=== PATIENT | male | born 1955 | race Caucasian/White ===

== ENCOUNTER → 2017-06-04 | Outpatient (CLI) | payer OTHER ==
[~2017-06-04] VITALS: Ht 170.2 cm; Wt 97.1 kg
[~2017-06-04] MED LIST: ASPI-556 PO; BETA50CR5 TP; CARV6 PO; CLOP75 PO; EMPA25TA PO; ENAL5 PO; HYDR25TA PO; INSLAN SQ; INSU100C3 SQ; LIDOCAINE HCL 2% 5 ML JELLY TP ONE; LINA5TAB PO; METF500T4 PO; OMEG1CAP12 PO; PRAV40TA4 PO; SODIUM HYPOCHLORITE 0.25% [HALF STRENGTH] 473 ML SOLUTION TP ONE; TRI115C TP
[2017-06-04 11:53] VITALS: BP 112/65
== END | disposition home or self-care (01) ==
LOC: HBOWC 11:11
PROVIDERS: ATTEND Internal Medicine
DX: E11.622 Type 2 diabetes mellitus with other skin ulcer (principal); L97.811 Non-pressure chronic ulcer of other part of right lower leg limited to breakdown of skin; L97.521 Non-pressure chronic ulcer of other part of left foot limited to breakdown of skin; L84 Corns and callosities; E11.69 Type 2 diabetes mellitus with other specified complication; M86.672 Other chronic osteomyelitis, left ankle and foot; I10 Essential (primary) hypertension
CPT/HCPCS: 11042; G0463

== ENCOUNTER → 2017-06-11 | Outpatient (CLI) | payer OTHER ==
[~2017-06-11] MED LIST changes: -BETA50CR5 TP; +CIPR-278 PO; +DOXY100C PO; +GADOBUTROL 1 MMOL/ML 10 ML VIAL IVP ONE; +LIDOCAINE HCL 2% 5 ML JELLY ONE; -LIDOCAINE HCL 2% 5 ML JELLY TP ONE; -SODIUM HYPOCHLORITE 0.25% [HALF STRENGTH] 473 ML SOLUTION TP ONE; -TRI115C TP
[2017-06-11 11:48] VITALS: BP 142/63
== END | disposition home or self-care (01) ==
LOC: HBOWC 10:50
PROVIDERS: ATTEND Internal Medicine
DX: E11.622 Type 2 diabetes mellitus with other skin ulcer (principal); L97.111 Non-pressure chronic ulcer of right thigh limited to breakdown of skin; E11.621 Type 2 diabetes mellitus with foot ulcer; L97.511 Non-pressure chronic ulcer of other part of right foot limited to breakdown of skin; L84 Corns and callosities; I10 Essential (primary) hypertension
CPT/HCPCS: 11042; 73552; 73630; 73720; 73723; A9585

== ENCOUNTER → 2017-06-12 | Outpatient (CLI) | payer OTHER ==
[~2017-06-12] MED LIST changes: -GADOBUTROL 1 MMOL/ML 10 ML VIAL IVP ONE; -LIDOCAINE HCL 2% 5 ML JELLY ONE
== END | disposition home or self-care (01) ==
LOC: RADPV 10:16
PROVIDERS: ATTEND Internal Medicine
DX: I70.203 Unspecified atherosclerosis of native arteries of extremities, bilateral legs (principal); E11.621 Type 2 diabetes mellitus with foot ulcer; L97.819 Non-pressure chronic ulcer of other part of right lower leg with unspecified severity
CPT/HCPCS: 93880; 93925

== ENCOUNTER → 2017-06-18 | Outpatient (CLI) | payer OTHER ==
[2017-06-18 10:28] VITALS: BP 110/54
== END | disposition home or self-care (01) ==
LOC: HBOWC 09:55
PROVIDERS: ATTEND Internal Medicine
DX: E11.622 Type 2 diabetes mellitus with other skin ulcer (principal); L97.111 Non-pressure chronic ulcer of right thigh limited to breakdown of skin; E11.621 Type 2 diabetes mellitus with foot ulcer; L97.511 Non-pressure chronic ulcer of other part of right foot limited to breakdown of skin; L84 Corns and callosities; I10 Essential (primary) hypertension; E11.69 Type 2 diabetes mellitus with other specified complication; M86.8X7 Other osteomyelitis, ankle and foot
CPT/HCPCS: 11042

== ENCOUNTER → 2017-06-25 | Outpatient (CLI) | payer OTHER ==
[~2017-06-25] MED LIST changes: +GENTAMICIN SULFATE 0.1% 15 GM OINTMENT TP ONE; +LIDOCAINE HCL 2% 5 ML JELLY TP ONE
[2017-06-25 09:45] VITALS: BP 147/90
== END | disposition home or self-care (01) ==
LOC: HBOWC 08:54
PROVIDERS: ATTEND Internal Medicine
DX: E11.622 Type 2 diabetes mellitus with other skin ulcer (principal); L97.111 Non-pressure chronic ulcer of right thigh limited to breakdown of skin; E78.5 Hyperlipidemia, unspecified; E11.51 Type 2 diabetes mellitus with diabetic peripheral angiopathy without gangrene; I10 Essential (primary) hypertension; E11.69 Type 2 diabetes mellitus with other specified complication; M86.672 Other chronic osteomyelitis, left ankle and foot
CPT/HCPCS: 11042

== ENCOUNTER → 2017-07-09 | Outpatient (CLI) | payer OTHER ==
[~2017-07-09] MED LIST changes: -GENTAMICIN SULFATE 0.1% 15 GM OINTMENT TP ONE; -LIDOCAINE HCL 2% 5 ML JELLY TP ONE
[2017-07-09 11:33] VITALS: BP 148/66
== END | disposition home or self-care (01) ==
LOC: HBOWC 10:32
PROVIDERS: ATTEND Internal Medicine
DX: E11.622 Type 2 diabetes mellitus with other skin ulcer (principal); L98.491 Non-pressure chronic ulcer of skin of other sites limited to breakdown of skin; S91.301D Unspecified open wound, right foot, subsequent encounter; E11.51 Type 2 diabetes mellitus with diabetic peripheral angiopathy without gangrene; I10 Essential (primary) hypertension; E78.5 Hyperlipidemia, unspecified; E11.69 Type 2 diabetes mellitus with other specified complication; M86.672 Other chronic osteomyelitis, left ankle and foot; E11.22 Type 2 diabetes mellitus with diabetic chronic kidney disease; I12.9 Hypertensive chronic kidney disease with stage 1 through stage 4 chronic kidney disease, or unspecified chronic kidney disease; N18.9 Chronic kidney disease, unspecified; E11.40 Type 2 diabetes mellitus with diabetic neuropathy, unspecified; X58.XXXD Exposure to other specified factors, subsequent encounter
CPT/HCPCS: 97597

== ENCOUNTER → 2017-08-06 | Outpatient (CLI) | payer OTHER ==
[~2017-08-06] MED LIST changes: -METF500T4 PO; +METF500T6 PO
[2017-08-06 09:21] VITALS: BP 153/74
== END | disposition home or self-care (01) ==
LOC: HBOWC 08:48
PROVIDERS: ATTEND Internal Medicine
DX: E11.622 Type 2 diabetes mellitus with other skin ulcer (principal); L97.111 Non-pressure chronic ulcer of right thigh limited to breakdown of skin; E11.22 Type 2 diabetes mellitus with diabetic chronic kidney disease; I12.9 Hypertensive chronic kidney disease with stage 1 through stage 4 chronic kidney disease, or unspecified chronic kidney disease; N18.9 Chronic kidney disease, unspecified; E78.5 Hyperlipidemia, unspecified; E11.69 Type 2 diabetes mellitus with other specified complication; M86.672 Other chronic osteomyelitis, left ankle and foot; E11.40 Type 2 diabetes mellitus with diabetic neuropathy, unspecified; E11.51 Type 2 diabetes mellitus with diabetic peripheral angiopathy without gangrene
CPT/HCPCS: 11042

== ENCOUNTER 2017-08-13 10:21 | Inpatient (IN) | payer OTHER ==
[~2017-08-13] VITALS: Ht 170.2 cm; Wt 90.9 kg
[~2017-08-13 10:21] MED LIST changes: -ACET650S14 PR; -ENAL20 PO; -OMEG-135 PO; -SULF1TAB42 PO
[2017-08-13 10:38] LABS: GLUCOSE,POINT OF CARE 114 MG/DL (70-110)
[2017-08-13] MEDS ORDERED: VANCOMYCIN HCL 1 GM/D5% WATER 200 ML IV ONE (11:00)
[2017-08-13] MEDS ORDERED: PIPERACILLIN/TAZO 3.375 GM/D5W 50 ML IV ONE (11:00)
[2017-08-13 12:05] LABS: BASOPHILS % (AUTO) 0.7 % (0.0-2.0); EOSINOPHILS % (AUTO) 3.5 % (1.0-6.0); HEMATOCRIT 42.7 % (41-53); HEMOGLOBIN 14.5 g/dL (13.5-17.5); LYMPHOCYTES # (AUTO) 1.7 K/uL (1.0-4.8); LYMPHOCYTES % (AUTO) 12.7 % (22.0-44.0); MEAN CORPUSCULAR HEMOGLOBIN 27.3 pg (26.0-34.0); MEAN CORPUSCULAR HGB CONC 33.9 G/dL (31.0-37.0); MEAN CORPUSCULAR VOLUME 80 fL (80-100); MONOCYTES # (AUTO) 1.1 K/uL (0.1-1.0); MONOCYTES % (AUTO) 8.5 % (2.0-9.0); NEUTROPHILS # (AUTO) 9.9 K/uL (1.8-7.7); NEUTROPHILS % (AUTO) 74.6 % (40.0-70.0); PLATELET COUNT (AUTO) 361 K/uL (150-450); RED BLOOD CELL COUNT(AUTO) 5.32 MIL/uL (4.50-5.90); RED CELL DISTRIBUTION WIDTH 15.9 % (11.5-14.5)
[2017-08-13 12:17] LABS: ANION GAP 10 mmol/L (8-16); CALCIUM, TOTAL 9.1 mg/dL (8.8-10.5); CARBON DIOXIDE 27 mmol/L (22-29); CHLORIDE 104 mmol/L (98-107); CREATININE 1.04 mg/dL (0.60-1.30); GLOMERULAR FILTR. RATE CALC > 60 mL/min (>60); GLUCOSE,RANDOM 117 mg/dL (70-110); SODIUM SERUM 141 mmol/L (136-145); UREA NITROGEN, BLOOD 23 mg/dL (7-18)
[2017-08-13 12:22] LABS: ALANINE AMINOTRANSFERASE 26 U/L (12-78); ALBUMIN 3.4 g/dL (3.4-5.0); ALKALINE PHOSPHATASE 130 U/L (46-116); ASPARTATE AMINOTRANSFERASE 16 U/L (15-37); BILIRUBIN,TOTAL 0.4 mg/dL (0.1-1.0); TOTAL PROTEIN, SERUM 8.3 g/dL (6.4-8.2)
[2017-08-13 12:30] LABS: LACTIC ACID 2.6 mmol/L (0.4-2.0)
[2017-08-13] MEDS ORDERED: 0.9% SODIUM CHLORIDE 10 ML SYRINGE IVP PRN (13:00)
[2017-08-13] MEDS ORDERED: ONDANSETRON HCL 4 MG/2 ML VIAL IVP PRN ×2 (13:00→15:15)
[2017-08-13] MEDS ORDERED: ACETAMINOPHEN 325 MG TABLET PO PRN ×2 (13:00→15:15)
[2017-08-13 14:35] VITALS: BP 142/72
[2017-08-13] MEDS ORDERED: BISACODYL 10 MG RECTAL RECTAL SUPPOSITORY PR PRN (15:15)
[2017-08-13] MEDS ORDERED: ZOLPIDEM TARTRATE 5 MG TABLET PO PRN (15:15)
[2017-08-13] MEDS ORDERED: MAGNESIUM HYDROXIDE SUSPENSION 30 ML UDCUP PO PRN (15:15)
[2017-08-13] MEDS ORDERED: MORPHINE SULFATE 2 MG/ML SYRINGE IVP PRN (15:15)
[2017-08-13] MEDS ORDERED: GADOBUTROL 1 MMOL/ML 10 ML VIAL IVP ONE (15:51)
[2017-08-13] MEDS ORDERED: VANCOMYCIN HCL 1.5 GM in DEXTROSE 5%-WATER 250 ML IV ONE (17:00)
[2017-08-13] MEDS: PIPERACILLIN/TAZO 3.375 GM/D5W 50 ML IV SCH ×2 (18:11→22:24)
[2017-08-13] MEDS: MetFORMIN HCL 500 MG TABLET PO SCH (18:11)
[2017-08-13] MEDS: HEPARIN SODIUM,PORCINE 5,000 UNITS/ML VIAL SQ SCH (18:11)
[2017-08-13] MEDS ORDERED: SODIUM CHLORIDE 0.9% 500 ML IV ONE (18:15)
[2017-08-13] MEDS: HYDROCODONE/ACETAMINOPHEN 5-325 MG TABLET PO PRN (18:41)
[2017-08-13 19:32] VITALS: BP 144/71
[2017-08-13] MEDS: CARVEDILOL 6.25 MG TABLET PO SCH (20:03)
[2017-08-13] MEDS: PRAVASTATIN SODIUM 40 MG TABLET PO SCH (20:04)
[2017-08-13] MEDS: DOCUSATE SODIUM 100 MG CAPSULE PO SCH (21:00)
[2017-08-13] MEDS: INSULIN GLARGINE,HUM.REC.ANLOG 100 UNITS/ML SQ SCH (22:22)
[2017-08-13 23:22] VITALS: BP 145/80
[2017-08-14] MEDS: HEPARIN SODIUM,PORCINE 5,000 UNITS/ML VIAL SQ SCH ×3 (01:09→15:14)
[2017-08-14 04:50] VITALS: BP 132/61
[2017-08-14] MEDS: PIPERACILLIN/TAZO 3.375 GM/D5W 50 ML IV SCH ×4 (05:08→21:36)
[2017-08-14 06:53] LABS: BASOPHILS % (AUTO) 0.5 % (0.0-2.0); EOSINOPHILS % (AUTO) 4.3 % (1.0-6.0); HEMATOCRIT 36.6 % (41-53); HEMOGLOBIN 12.5 g/dL (13.5-17.5); LYMPHOCYTES # (AUTO) 1.3 K/uL (1.0-4.8); LYMPHOCYTES % (AUTO) 11.9 % (22.0-44.0); MEAN CORPUSCULAR HEMOGLOBIN 27.4 pg (26.0-34.0); MEAN CORPUSCULAR HGB CONC 34.1 G/dL (31.0-37.0); MEAN CORPUSCULAR VOLUME 80 fL (80-100); MONOCYTES # (AUTO) 1.1 K/uL (0.1-1.0); MONOCYTES % (AUTO) 10.2 % (2.0-9.0); NEUTROPHILS # (AUTO) 7.7 K/uL (1.8-7.7); NEUTROPHILS % (AUTO) 73.1 % (40.0-70.0); PLATELET COUNT (AUTO) 324 K/uL (150-450); RED BLOOD CELL COUNT(AUTO) 4.55 MIL/uL (4.50-5.90); RED CELL DISTRIBUTION WIDTH 15.3 % (11.5-14.5)
[2017-08-14] MEDS: VANCOMYCIN HCL 1.25 GM in DEXTROSE 5%-WATER 250 ML IV SCH ×2 (07:02→18:17)
[2017-08-14 07:08] LABS: ALANINE AMINOTRANSFERASE 21 U/L (12-78); ALBUMIN 2.7 g/dL (3.4-5.0); ALKALINE PHOSPHATASE 106 U/L (46-116); ANION GAP 6 mmol/L (8-16); ASPARTATE AMINOTRANSFERASE 14 U/L (15-37); BILIRUBIN,TOTAL 0.3 mg/dL (0.1-1.0); CALCIUM, TOTAL 8.4 mg/dL (8.8-10.5); CARBON DIOXIDE 29 mmol/L (22-29); CHLORIDE 102 mmol/L (98-107); CREATININE 0.93 mg/dL (0.60-1.30); GLOMERULAR FILTR. RATE CALC > 60 mL/min (>60); GLUCOSE,RANDOM 140 mg/dL (70-110); SODIUM SERUM 137 mmol/L (136-145); TOTAL PROTEIN, SERUM 6.8 g/dL (6.4-8.2); UREA NITROGEN, BLOOD 19 mg/dL (7-18)
[2017-08-14 08:03] VITALS: BP 128/68
[2017-08-14] MEDS: ASPIRIN 81 MG EC TABLET PO SCH (08:59)
[2017-08-14] MEDS: CARVEDILOL 6.25 MG TABLET PO SCH ×2 (08:59→19:56)
[2017-08-14] MEDS: DOCUSATE SODIUM 100 MG CAPSULE PO SCH ×2 (08:59→19:56)
[2017-08-14] MEDS: MetFORMIN HCL 500 MG TABLET PO SCH ×2 (08:59→18:17)
[2017-08-14] MEDS: PANTOPRAZOLE SODIUM 40 MG DR TABLET PO SCH (09:00)
[2017-08-14] MEDS ORDERED: [UNRECOGNIZED DRUG - OTHER] PO SCH (09:00)
[2017-08-14] MEDS ORDERED: ENALAPRIL MALEATE 20 MG TABLET PO SCH (09:00)
[2017-08-14] MEDS ORDERED: LinaGLIPtin 5 MG TABLET PO SCH (09:00)
[2017-08-14 11:50] VITALS: BP 103/62
[2017-08-14 11:53] LABS: GLUCOMETER DEV NAME(LOC) PV 4E2; GLUCOSE,POINT OF CARE 237 MG/DL (70-110)
[2017-08-14 11:53] LABS: GLUCOMETER DEV NAME(LOC) PV 4E2; GLUCOSE,POINT OF CARE 146 MG/DL (70-110)
[2017-08-14 11:53] LABS: GLUCOMETER DEV NAME(LOC) PV 4E2; GLUCOSE,POINT OF CARE 115 MG/DL (70-110)
[2017-08-14 11:53] LABS: GLUCOMETER DEV NAME(LOC) PV 4E2; GLUCOSE,POINT OF CARE 127 MG/DL (70-110)
[2017-08-14] MEDS ORDERED: DEXTROSE 50%-WATER 25 GM/50 ML SYRINGE IVP PRN (12:15)
[2017-08-14] MEDS: INSULIN LISPRO 100 UNITS/ML SQ PRN (13:02)
[2017-08-14 16:51] VITALS: BP 127/58
[2017-08-14 18:33] LABS: GLUCOMETER DEV NAME(LOC) 6N 1E; GLUCOSE,POINT OF CARE 128 MG/DL (70-110)
[2017-08-14 19:30] VITALS: BP 146/68
[2017-08-14] MEDS: PRAVASTATIN SODIUM 40 MG TABLET PO SCH (19:56)
[2017-08-14] MEDS: INSULIN GLARGINE,HUM.REC.ANLOG 100 UNITS/ML SQ SCH (21:57)
[2017-08-14 22:32] LABS: GLUCOMETER DEV NAME(LOC) 6N 1E; GLUCOSE,POINT OF CARE 157 MG/DL (70-110)
[2017-08-14 23:13] VITALS: BP 140/82
[2017-08-15 04:10] VITALS: BP 114/66
[2017-08-15] MEDS: PIPERACILLIN/TAZO 3.375 GM/D5W 50 ML IV SCH ×4 (05:55→23:47)
[2017-08-15 06:13] LABS: GLUCOMETER DEV NAME(LOC) 6N 2D; GLUCOSE,POINT OF CARE 123 MG/DL (70-110)
[2017-08-15] MEDS: VANCOMYCIN HCL 1.25 GM in DEXTROSE 5%-WATER 250 ML IV SCH (06:32)
[2017-08-15 06:36] LABS: ANION GAP 7 mmol/L (8-16); CALCIUM, TOTAL 8.5 mg/dL (8.8-10.5); CARBON DIOXIDE 28 mmol/L (22-29); CHLORIDE 102 mmol/L (98-107); CREATININE 0.81 mg/dL (0.60-1.30); GLOMERULAR FILTR. RATE CALC > 60 mL/min (>60); GLUCOSE,RANDOM 117 mg/dL (70-110); SODIUM SERUM 137 mmol/L (136-145); UREA NITROGEN, BLOOD 14 mg/dL (7-18); VANCOMYCIN,RANDOM 13.1 mcg/mL (25.0-50.0)
[2017-08-15] MEDS: HYDROCODONE/ACETAMINOPHEN 5-325 MG TABLET PO PRN (06:37)
[2017-08-15 07:11] VITALS: BP 134/69
[2017-08-15] MEDS: HEPARIN SODIUM,PORCINE 5,000 UNITS/ML VIAL SQ SCH ×5 (08:00→23:47)
[2017-08-15] MEDS: ZINC SULFATE 220 MG CAPSULE PO SCH (10:01)
[2017-08-15] MEDS: DOCUSATE SODIUM 100 MG CAPSULE PO SCH ×2 (10:03→20:48)
[2017-08-15] MEDS: MetFORMIN HCL 500 MG TABLET PO SCH ×2 (10:03→18:05)
[2017-08-15] MEDS: PANTOPRAZOLE SODIUM 40 MG DR TABLET PO SCH (10:03)
[2017-08-15] MEDS: MULTIVITAMINS WITH MINERALS, THERAPEUTIC TABLET PO SCH (10:03)
[2017-08-15] MEDS: ASPIRIN 81 MG EC TABLET PO SCH (10:03)
[2017-08-15] MEDS: ENALAPRIL MALEATE 10 MG TABLET PO SCH (10:04)
[2017-08-15] MEDS: ASCORBIC ACID 500 MG TABLET PO SCH (10:04)
[2017-08-15] MEDS: CARVEDILOL 6.25 MG TABLET PO SCH ×2 (10:04→20:48)
[2017-08-15] MEDS ORDERED: OMEG-135 PO (10:38)
[2017-08-15] MEDS ORDERED: ENAL20 PO (10:38)
[2017-08-15 11:10] VITALS: BP 127/72
[2017-08-15] MEDS ORDERED: RINGERS SOLUTION,LACTATED 1,000 ML IV ONE ×2 (11:24→11:30)
[2017-08-15] MEDS ORDERED: MIDAZOLAM HCL 2 MG/2 ML VIAL IVP ONE (12:00)
[2017-08-15] MEDS ORDERED: FentaNYL CITRATE-PF 100 MCG/2 ML VIAL IVP ONE (12:00)
[2017-08-15] MEDS ORDERED: LIDOCAINE HCL/PF 1% 30 ML VIAL ONE (12:34)
[2017-08-15] MEDS ORDERED: BUPIVACAINE HCL/PF 0.5% 30 ML VIAL ONE (12:34)
[2017-08-15] MEDS ORDERED: HYDROmorphone 2 MG/ML SYRINGE IVP PRN (13:30)
[2017-08-15 15:20] VITALS: BP 97/60
[2017-08-15] MEDS: INSULIN LISPRO 100 UNITS/ML SQ PRN ×2 (18:39→21:07)
[2017-08-15] MEDS: VANCOMYCIN HCL 1.5 GM in DEXTROSE 5%-WATER 250 ML IV SCH (18:44)
[2017-08-15 19:04] LABS: GLUCOMETER DEV NAME(LOC) 6N 2D; GLUCOSE,POINT OF CARE 165 MG/DL (70-110)
[2017-08-15 19:56] VITALS: BP 132/64
[2017-08-15] MEDS: PRAVASTATIN SODIUM 40 MG TABLET PO SCH (20:48)
[2017-08-15] MEDS: INSULIN GLARGINE,HUM.REC.ANLOG 100 UNITS/ML SQ SCH (21:08)
[2017-08-15 21:49] LABS: GLUCOMETER DEV NAME(LOC) 6N 2D; GLUCOSE,POINT OF CARE 175 MG/DL (70-110)
[2017-08-15] MEDS ORDERED: PROPOFOL 1% 20 ML VIAL IVP ONE (22:25)
[2017-08-15] MEDS ORDERED: LIDOCAINE HCL/PF 2% 5 ML VIAL IM ONE (22:25)
[2017-08-16] VITALS (7 sets, daily range): BP systolic 116–142; BP diastolic 59–80
[2017-08-16] MEDS: MORPHINE SULFATE 4 MG/ML SYRINGE IVP PRN ×4 (00:15→20:10)
[2017-08-16] MEDS: PIPERACILLIN/TAZO 3.375 GM/D5W 50 ML IV SCH ×3 (05:27→15:35)
[2017-08-16 06:17] LABS: BASOPHILS % (AUTO) 0.7 % (0.0-2.0); EOSINOPHILS % (AUTO) 3.6 % (1.0-6.0); HEMATOCRIT 37.8 % (41-53); HEMOGLOBIN 12.8 g/dL (13.5-17.5); LYMPHOCYTES # (AUTO) 1.3 K/uL (1.0-4.8); LYMPHOCYTES % (AUTO) 12.5 % (22.0-44.0); MEAN CORPUSCULAR HEMOGLOBIN 27.3 pg (26.0-34.0); MEAN CORPUSCULAR HGB CONC 33.9 G/dL (31.0-37.0); MEAN CORPUSCULAR VOLUME 81 fL (80-100); MONOCYTES % (AUTO) 9.6 % (2.0-9.0); NEUTROPHILS # (AUTO) 7.4 K/uL (1.8-7.7); NEUTROPHILS % (AUTO) 73.6 % (40.0-70.0); PLATELET COUNT (AUTO) 338 K/uL (150-450); RED BLOOD CELL COUNT(AUTO) 4.69 MIL/uL (4.50-5.90); RED CELL DISTRIBUTION WIDTH 15.2 % (11.5-14.5)
[2017-08-16 06:25] LABS: ANION GAP 6 mmol/L (8-16); CALCIUM, TOTAL 8.6 mg/dL (8.8-10.5); CARBON DIOXIDE 28 mmol/L (22-29); CHLORIDE 101 mmol/L (98-107); CREATININE 0.93 mg/dL (0.60-1.30); GLOMERULAR FILTR. RATE CALC > 60 mL/min (>60); GLUCOSE,RANDOM 113 mg/dL (70-110); POTASSIUM 4.2 mmol/L (3.5-5.1); SODIUM SERUM 135 mmol/L (136-145); UREA NITROGEN, BLOOD 14 mg/dL (7-18)
[2017-08-16] MEDS: VANCOMYCIN HCL 1.5 GM in DEXTROSE 5%-WATER 250 ML IV SCH (06:45)
[2017-08-16 07:02] LABS: GLUCOMETER DEV NAME(LOC) 6N 2D; GLUCOSE,POINT OF CARE 129 MG/DL (70-110)
[2017-08-16] MEDS: PANTOPRAZOLE SODIUM 40 MG DR TABLET PO SCH (09:32)
[2017-08-16] MEDS: ZINC SULFATE 220 MG CAPSULE PO SCH (09:33)
[2017-08-16] MEDS: ASCORBIC ACID 500 MG TABLET PO SCH (09:33)
[2017-08-16] MEDS: ASPIRIN 81 MG EC TABLET PO SCH (09:33)
[2017-08-16] MEDS: MetFORMIN HCL 500 MG TABLET PO SCH ×2 (09:33→17:34)
[2017-08-16] MEDS: MULTIVITAMINS WITH MINERALS, THERAPEUTIC TABLET PO SCH (09:33)
[2017-08-16] MEDS: CARVEDILOL 6.25 MG TABLET PO SCH ×2 (09:33→20:08)
[2017-08-16] MEDS: ENALAPRIL MALEATE 10 MG TABLET PO SCH (09:34)
[2017-08-16] MEDS: DOCUSATE SODIUM 100 MG CAPSULE PO SCH ×2 (09:34→20:08)
[2017-08-16] MEDS: HEPARIN SODIUM,PORCINE 5,000 UNITS/ML VIAL SQ SCH ×2 (09:34→15:35)
[2017-08-16 12:07] LABS: GLUCOMETER DEV NAME(LOC) 6N 1E; GLUCOSE,POINT OF CARE 111 MG/DL (70-110)
[2017-08-16] MEDS: HYDROCODONE/ACETAMINOPHEN 5-325 MG TABLET PO PRN (12:48)
[2017-08-16] MEDS: CeFAZolin SODIUM 2 GM in DEXTROSE 5%-WATER 20 ML IV SCH (17:34)
[2017-08-16] MEDS: PRAVASTATIN SODIUM 40 MG TABLET PO SCH (20:08)
[2017-08-16] MEDS: INSULIN LISPRO 100 UNITS/ML SQ PRN (20:54)
[2017-08-16] MEDS: INSULIN GLARGINE,HUM.REC.ANLOG 100 UNITS/ML SQ SCH (20:54)
[2017-08-16 23:51] LABS: GLUCOMETER DEV NAME(LOC) 6N 1E; GLUCOSE,POINT OF CARE 117 MG/DL (70-110)
[2017-08-16 23:52] LABS: GLUCOMETER DEV NAME(LOC) 6N 1E; GLUCOSE,POINT OF CARE 156 MG/DL (70-110)
[2017-08-17] MEDS: HEPARIN SODIUM,PORCINE 5,000 UNITS/ML VIAL SQ SCH ×4 (00:29→23:51)
[2017-08-17] MEDS: CeFAZolin SODIUM 2 GM in DEXTROSE 5%-WATER 20 ML IV SCH ×3 (02:28→18:07)
[2017-08-17 04:39] VITALS: BP 128/67
[2017-08-17] MEDS: INSULIN LISPRO 100 UNITS/ML SQ PRN ×2 (06:23→13:15)
[2017-08-17] MEDS: MORPHINE SULFATE 4 MG/ML SYRINGE IVP PRN ×3 (06:27→22:31)
[2017-08-17 07:17] LABS: ANION GAP 5 mmol/L (8-16); CALCIUM, TOTAL 8.7 mg/dL (8.8-10.5); CARBON DIOXIDE 29 mmol/L (22-29); CHLORIDE 101 mmol/L (98-107); CREATININE 0.82 mg/dL (0.60-1.30); GLOMERULAR FILTR. RATE CALC > 60 mL/min (>60); GLUCOSE,RANDOM 139 mg/dL (70-110); SODIUM SERUM 135 mmol/L (136-145); UREA NITROGEN, BLOOD 12 mg/dL (7-18)
[2017-08-17 07:20] VITALS: BP 134/61
[2017-08-17] MEDS: ZINC SULFATE 220 MG CAPSULE PO SCH (08:35)
[2017-08-17] MEDS: MetFORMIN HCL 500 MG TABLET PO SCH ×2 (08:36→18:07)
[2017-08-17] MEDS: ASCORBIC ACID 500 MG TABLET PO SCH (08:36)
[2017-08-17] MEDS: ENALAPRIL MALEATE 10 MG TABLET PO SCH (08:36)
[2017-08-17] MEDS: MULTIVITAMINS WITH MINERALS, THERAPEUTIC TABLET PO SCH (08:36)
[2017-08-17] MEDS: CARVEDILOL 6.25 MG TABLET PO SCH ×2 (08:36→20:45)
[2017-08-17] MEDS: ASPIRIN 81 MG EC TABLET PO SCH (08:36)
[2017-08-17] MEDS: PANTOPRAZOLE SODIUM 40 MG DR TABLET PO SCH (08:36)
[2017-08-17] MEDS: DOCUSATE SODIUM 100 MG CAPSULE PO SCH ×2 (08:36→20:45)
[2017-08-17 11:06] VITALS: BP 119/62
[2017-08-17 11:47] LABS: GLUCOMETER DEV NAME(LOC) 6N 1E; GLUCOSE,POINT OF CARE 143 MG/DL (70-110)
[2017-08-17 16:08] VITALS: BP 109/54
[2017-08-17 19:32] LABS: GLUCOMETER DEV NAME(LOC) 6N 1E; GLUCOSE,POINT OF CARE 113 MG/DL (70-110)
[2017-08-17 19:32] LABS: GLUCOMETER DEV NAME(LOC) 6N 1E; GLUCOSE,POINT OF CARE 252 MG/DL (70-110)
[2017-08-17 19:34] VITALS: BP 142/69
[2017-08-17] MEDS: PRAVASTATIN SODIUM 40 MG TABLET PO SCH (20:45)
[2017-08-17] MEDS: INSULIN GLARGINE,HUM.REC.ANLOG 100 UNITS/ML SQ SCH (20:48)
[2017-08-17 21:42] LABS: GLUCOMETER DEV NAME(LOC) 6N 2D; GLUCOSE,POINT OF CARE 123 MG/DL (70-110)
[2017-08-17 23:35] VITALS: BP 120/61
[2017-08-18] MEDS: CeFAZolin SODIUM 2 GM in DEXTROSE 5%-WATER 20 ML IV SCH (03:11)
[2017-08-18 04:37] VITALS: BP 142/73
[2017-08-18] MEDS: INSULIN LISPRO 100 UNITS/ML SQ PRN ×2 (06:39→11:42)
[2017-08-18 06:47] LABS: CARBON DIOXIDE 29 mmol/L (22-29); CHLORIDE 101 mmol/L (98-107); SODIUM SERUM 136 mmol/L (136-145)
[2017-08-18 06:48] LABS: ANION GAP 6 mmol/L (8-16); CALCIUM, TOTAL 8.8 mg/dL (8.8-10.5); CREATININE 0.77 mg/dL (0.60-1.30); GLOMERULAR FILTR. RATE CALC > 60 mL/min (>60); GLUCOSE,RANDOM 145 mg/dL (70-110); UREA NITROGEN, BLOOD 15 mg/dL (7-18)
[2017-08-18 08:15] VITALS: BP 126/64
[2017-08-18] MEDS: ZINC SULFATE 220 MG CAPSULE PO SCH (08:43)
[2017-08-18] MEDS: HEPARIN SODIUM,PORCINE 5,000 UNITS/ML VIAL SQ SCH (08:43)
[2017-08-18] MEDS: ASCORBIC ACID 500 MG TABLET PO SCH (08:44)
[2017-08-18] MEDS: MULTIVITAMINS WITH MINERALS, THERAPEUTIC TABLET PO SCH (08:44)
[2017-08-18] MEDS: MetFORMIN HCL 500 MG TABLET PO SCH (08:44)
[2017-08-18] MEDS: ASPIRIN 81 MG EC TABLET PO SCH (08:44)
[2017-08-18] MEDS: DOCUSATE SODIUM 100 MG CAPSULE PO SCH (08:44)
[2017-08-18] MEDS: CARVEDILOL 6.25 MG TABLET PO SCH (08:44)
[2017-08-18] MEDS: ENALAPRIL MALEATE 10 MG TABLET PO SCH (08:45)
[2017-08-18] MEDS: PANTOPRAZOLE SODIUM 40 MG DR TABLET PO SCH (08:46)
[2017-08-18] MEDS ORDERED: SULFAMETHOX/TRIMETH DS 800-160 MG/TABLET PO SCH (09:00)
[2017-08-18] MEDS: HYDROCODONE/ACETAMINOPHEN 5-325 MG TABLET PO PRN (11:38)
[2017-08-18 12:04] VITALS: BP 132/70
[2017-08-18] MEDS ORDERED: SULF1TAB42 PO (13:48)
[2017-08-18 13:57] LABS: GLUCOMETER DEV NAME(LOC) 6N 1E; GLUCOSE,POINT OF CARE 154 MG/DL (70-110)
[2017-08-18] MEDS ORDERED: ACET650S14 PR (14:14)
[2017-08-18 16:58] LABS: GLUCOMETER DEV NAME(LOC) 6N 2D; GLUCOSE,POINT OF CARE 155 MG/DL (70-110)
== END 2017-08-18 17:45 | disposition home or self-care (01) | DRG 314 ==
LOC: EMS 10:22 → 4E 13:21 → 6N 08-14 17:45
PROVIDERS: ADMIT Internal Medicine; ATTEND Internal Medicine
PROC: 0QBN0ZZ Excision of Right Metatarsal, Open Approach (ICD-10-PCS; principal; 2017-08-15 12:30)
DX: E11.69 Type 2 diabetes mellitus with other specified complication (principal); M86.171 Other acute osteomyelitis, right ankle and foot; E11.621 Type 2 diabetes mellitus with foot ulcer; E11.51 Type 2 diabetes mellitus with diabetic peripheral angiopathy without gangrene; I10 Essential (primary) hypertension; E78.5 Hyperlipidemia, unspecified; L03.115 Cellulitis of right lower limb; B95.61 Methicillin susceptible Staphylococcus aureus infection as the cause of diseases classified elsewhere; E66.9 Obesity, unspecified; E78.00 Pure hypercholesterolemia, unspecified; L97.519 Non-pressure chronic ulcer of other part of right foot with unspecified severity; Z79.4 Long term (current) use of insulin; Z79.899 Other long term (current) drug therapy; Z79.82 Long term (current) use of aspirin; Z79.02 Long term (current) use of antithrombotics/antiplatelets; Z68.31 Body mass index [BMI] 31.0-31.9, adult
CPT/HCPCS: 73720; 83605; 87040; 87070; 87081; 87147; 87205; 88305; 88311; 96374; 96375; 97162; 99285; A9585; J0690; J1644; J1815; J2250; J2270; J2543; J2704; J3010; J3370; J3490; J7040; J7060; J7120

== ENCOUNTER → 2017-08-13 | Outpatient (CLI) | payer OTHER ==
[~2017-08-13] MED LIST changes: +ACET650S14 PR; +ENAL20 PO; +OMEG-135 PO; +SULF1TAB42 PO
[2017-08-13 10:53] VITALS: BP 141/73
== END | disposition home or self-care (01) ==
LOC: HBOWC 08:27
PROVIDERS: ATTEND Internal Medicine
DX: E11.621 Type 2 diabetes mellitus with foot ulcer (principal); L97.511 Non-pressure chronic ulcer of other part of right foot limited to breakdown of skin; E11.622 Type 2 diabetes mellitus with other skin ulcer; L97.111 Non-pressure chronic ulcer of right thigh limited to breakdown of skin; E11.40 Type 2 diabetes mellitus with diabetic neuropathy, unspecified; E11.51 Type 2 diabetes mellitus with diabetic peripheral angiopathy without gangrene; E11.22 Type 2 diabetes mellitus with diabetic chronic kidney disease; I12.9 Hypertensive chronic kidney disease with stage 1 through stage 4 chronic kidney disease, or unspecified chronic kidney disease; N18.4 Chronic kidney disease, stage 4 (severe); E78.5 Hyperlipidemia, unspecified; E11.69 Type 2 diabetes mellitus with other specified complication; M86.672 Other chronic osteomyelitis, left ankle and foot
CPT/HCPCS: 11042

== ENCOUNTER → 2017-08-20 | Outpatient (CLI) | payer OTHER ==
[~2017-08-20] MED LIST changes: -CIPR-278 PO; -DOXY100C PO; +ENAL20 PO; -ENAL5 PO; -HYDR25TA PO; -LINA5TAB PO; +OMEG-135 PO; -OMEG1CAP12 PO; +SULF1TAB42 PO
[2017-08-20 10:11] VITALS: BP 106/65
== END | disposition home or self-care (01) ==
LOC: HBOWC 08:51
PROVIDERS: ATTEND Internal Medicine
DX: E11.622 Type 2 diabetes mellitus with other skin ulcer (principal); L97.111 Non-pressure chronic ulcer of right thigh limited to breakdown of skin; S91.301D Unspecified open wound, right foot, subsequent encounter; E11.51 Type 2 diabetes mellitus with diabetic peripheral angiopathy without gangrene; E66.9 Obesity, unspecified; E11.69 Type 2 diabetes mellitus with other specified complication; M86.171 Other acute osteomyelitis, right ankle and foot; E78.00 Pure hypercholesterolemia, unspecified; I77.1 Stricture of artery; E11.22 Type 2 diabetes mellitus with diabetic chronic kidney disease; I12.9 Hypertensive chronic kidney disease with stage 1 through stage 4 chronic kidney disease, or unspecified chronic kidney disease; N18.4 Chronic kidney disease, stage 4 (severe); M86.672 Other chronic osteomyelitis, left ankle and foot; E11.40 Type 2 diabetes mellitus with diabetic neuropathy, unspecified; Z79.4 Long term (current) use of insulin; X58.XXXD Exposure to other specified factors, subsequent encounter

== ENCOUNTER 2018-01-26 12:17 | Inpatient (IN) | payer OTHER ==
[~2018-01-26] VITALS: Ht 170.2 cm; Wt 92.4 kg
[~2018-01-26 12:17] MED LIST changes: +METF-960 PO; -METF500T6 PO
[2018-01-26] MEDS ORDERED: EMPA25TA PO (12:52)
[2018-01-26] MEDS ORDERED: LINA5TAB PO (12:52)
[2018-01-26] MEDS ORDERED: ATOR40TA28 PO (12:52)
[2018-01-26] MEDS ORDERED: HYDR25TA PO (12:52)
[2018-01-26 14:32] LABS: BASOPHILS % (AUTO) 0.7 % (0.0-2.0); EOSINOPHILS % (AUTO) 3.6 % (1.0-6.0); HEMATOCRIT 44.6 % (41-53); HEMOGLOBIN 14.9 g/dL (13.5-17.5); LYMPHOCYTES # (AUTO) 1.5 K/uL (1.0-4.8); LYMPHOCYTES % (AUTO) 14.5 % (22.0-44.0); MEAN CORPUSCULAR HEMOGLOBIN 27.5 pg (26.0-34.0); MEAN CORPUSCULAR HGB CONC 33.3 G/dL (31.0-37.0); MEAN CORPUSCULAR VOLUME 82 fL (80-100); MONOCYTES # (AUTO) 0.9 K/uL (0.1-1.0); MONOCYTES % (AUTO) 8.4 % (2.0-9.0); NEUTROPHILS # (AUTO) 7.4 K/uL (1.8-7.7); NEUTROPHILS % (AUTO) 72.8 % (40.0-70.0); PLATELET COUNT (AUTO) 302 K/uL (150-450); RED BLOOD CELL COUNT(AUTO) 5.42 MIL/uL (4.50-5.90); RED CELL DISTRIBUTION WIDTH 15.7 % (11.5-14.5)
[2018-01-26 14:43] LABS: INR 0.9 (0.9-1.1); PROTHROMBIN TIME 9.8 SEC (9.4-11.6)
[2018-01-26 14:44] LABS: ANION GAP 8 mmol/L (8-16); CALCIUM, TOTAL 8.6 mg/dL (8.8-10.5); CARBON DIOXIDE 27 mmol/L (22-29); CHLORIDE 101 mmol/L (98-107); CREATININE 1.16 mg/dL (0.60-1.30); GLOMERULAR FILTR. RATE CALC > 60 mL/min (>60); GLUCOSE,RANDOM 311 mg/dL (70-110); POTASSIUM 4.1 mmol/L (3.5-5.1); SODIUM SERUM 136 mmol/L (136-145); UREA NITROGEN, BLOOD 17 mg/dL (7-18)
[2018-01-26 14:49] LABS: ALANINE AMINOTRANSFERASE 26 U/L (12-78); ALBUMIN 3.4 g/dL (3.4-5.0); ALKALINE PHOSPHATASE 127 U/L (46-116); ASPARTATE AMINOTRANSFERASE 13 U/L (15-37); BILIRUBIN,TOTAL 0.2 mg/dL (0.1-1.0); TOTAL PROTEIN, SERUM 7.7 g/dL (6.4-8.2)
[2018-01-26 15:49] LABS: GLUCOSE,POINT OF CARE 273 MG/DL (70-110)
[2018-01-26] MEDS ORDERED: SODIUM CHLORIDE 0.9% 1,000 ML IV ONE (16:30)
[2018-01-26] MEDS ORDERED: VANCOMYCIN HCL 1 GM/D5% WATER 200 ML IV ONE (16:45)
[2018-01-26 19:00] VITALS: BP 153/78
[2018-01-26] MEDS ORDERED: BISACODYL 10 MG RECTAL RECTAL SUPPOSITORY PR PRN (20:00)
[2018-01-26] MEDS ORDERED: ACETAMINOPHEN 325 MG TABLET PO PRN (20:00)
[2018-01-26] MEDS ORDERED: ONDANSETRON HCL 4 MG/2 ML VIAL IVP PRN (20:00)
[2018-01-26] MEDS ORDERED: MAGNESIUM HYDROXIDE SUSPENSION 30 ML UDCUP PO PRN (20:00)
[2018-01-26] MEDS ORDERED: ZOLPIDEM TARTRATE 5 MG TABLET PO PRN (20:00)
[2018-01-26] MEDS ORDERED: DEXTROSE 50%-WATER 25 GM/50 ML SYRINGE IVP PRN (20:00)
[2018-01-26] MEDS ORDERED: HYDROCODONE/ACETAMINOPHEN 5-325 MG TABLET PO PRN (20:00)
[2018-01-26] MEDS: ATORVASTATIN CALCIUM 40 MG TABLET PO SCH (21:47)
[2018-01-26] MEDS: DOCUSATE SODIUM 100 MG CAPSULE PO SCH (21:47)
[2018-01-26] MEDS: CARVEDILOL 6.25 MG TABLET PO SCH (21:47)
[2018-01-26 23:22] VITALS: BP 136/67
[2018-01-27] MEDS: HEPARIN SODIUM,PORCINE 5,000 UNITS/ML VIAL SQ SCH ×4 (00:22→23:45)
[2018-01-27 02:19] LABS: GLUCOMETER DEV NAME(LOC) 6N 2D; GLUCOSE,POINT OF CARE 163 MG/DL (70-110)
[2018-01-27 05:18] LABS: BASOPHILS % (AUTO) 0.9 % (0.0-2.0); EOSINOPHILS % (AUTO) 4.6 % (1.0-6.0); HEMATOCRIT 40.2 % (41-53); HEMOGLOBIN 13.5 g/dL (13.5-17.5); LYMPHOCYTES # (AUTO) 1.3 K/uL (1.0-4.8); LYMPHOCYTES % (AUTO) 15.4 % (22.0-44.0); MEAN CORPUSCULAR HEMOGLOBIN 27.4 pg (26.0-34.0); MEAN CORPUSCULAR HGB CONC 33.5 G/dL (31.0-37.0); MEAN CORPUSCULAR VOLUME 82 fL (80-100); MONOCYTES # (AUTO) 0.9 K/uL (0.1-1.0); MONOCYTES % (AUTO) 10.1 % (2.0-9.0); PLATELET COUNT (AUTO) 273 K/uL (150-450); RED BLOOD CELL COUNT(AUTO) 4.92 MIL/uL (4.50-5.90)
[2018-01-27 05:26] VITALS: BP 141/74
[2018-01-27 05:28] LABS: ANION GAP 5 mmol/L (8-16); CARBON DIOXIDE 29 mmol/L (22-29); CHLORIDE 104 mmol/L (98-107); CREATININE 0.81 mg/dL (0.60-1.30); GLOMERULAR FILTR. RATE CALC > 60 mL/min (>60); GLUCOSE,RANDOM 182 mg/dL (70-110); POTASSIUM 3.9 mmol/L (3.5-5.1); SODIUM SERUM 138 mmol/L (136-145); UREA NITROGEN, BLOOD 15 mg/dL (7-18)
[2018-01-27 07:10] VITALS: BP 134/64
[2018-01-27 07:14] LABS: GLUCOMETER DEV NAME(LOC) 6N 1E; GLUCOSE,POINT OF CARE 176 MG/DL (70-110)
[2018-01-27] MEDS: HYDROCHLOROTHIAZIDE 25 MG TABLET PO SCH ×2 (08:26→16:35)
[2018-01-27] MEDS: ENALAPRIL MALEATE 20 MG TABLET PO SCH ×2 (08:26→16:35)
[2018-01-27] MEDS: ASPIRIN 81 MG CHEWABLE TABLET PO SCH ×2 (08:26→16:36)
[2018-01-27] MEDS: DOCUSATE SODIUM 100 MG CAPSULE PO SCH ×2 (08:26→20:11)
[2018-01-27] MEDS: PANTOPRAZOLE SODIUM 40 MG DR TABLET PO SCH ×2 (08:26→16:35)
[2018-01-27] MEDS: CARVEDILOL 6.25 MG TABLET PO SCH ×2 (08:26→20:12)
[2018-01-27] MEDS ORDERED: RINGERS SOLUTION,LACTATED 1,000 ML IV ONE ×2 (10:45→11:23)
[2018-01-27 11:07] VITALS: BP 105/56
[2018-01-27] MEDS ORDERED: LIDOCAINE/PF 1% 30 ML VIAL ONE (12:04)
[2018-01-27] MEDS ORDERED: BUPIVACAINE HCL/PF 0.5% 10 ML VIAL ONE (12:05)
[2018-01-27 15:34] VITALS: BP 156/83
[2018-01-27] MEDS: CeFAZolin 2 GM/DEXTROSE 50 ML IV SCH ×2 (15:43→23:45)
[2018-01-27] MEDS ORDERED: SODIUM CHLORIDE 0.9% 250 ML IV ONE (15:55)
[2018-01-27] MEDS: INSULIN LISPRO 100 UNITS/ML SQ PRN ×2 (17:32→21:01)
[2018-01-27 18:19] LABS: GLUCOMETER DEV NAME(LOC) 6N 2D; GLUCOSE,POINT OF CARE 211 MG/DL (70-110)
[2018-01-27] MEDS: MORPHINE SULFATE 4 MG/ML SYRINGE IVP PRN (19:01)
[2018-01-27 19:49] VITALS: BP 131/69
[2018-01-27] MEDS: ATORVASTATIN CALCIUM 40 MG TABLET PO SCH (20:11)
[2018-01-28] VITALS (7 sets, daily range): BP systolic 107–129; BP diastolic 58–94
[2018-01-28 05:47] LABS: BASOPHILS % (AUTO) 0.7 % (0.0-2.0); EOSINOPHILS % (AUTO) 4.3 % (1.0-6.0); HEMATOCRIT 41.9 % (41-53); HEMOGLOBIN 13.9 g/dL (13.5-17.5); LYMPHOCYTES # (AUTO) 1.4 K/uL (1.0-4.8); LYMPHOCYTES % (AUTO) 15.3 % (22.0-44.0); MEAN CORPUSCULAR HGB CONC 33.1 G/dL (31.0-37.0); MEAN CORPUSCULAR VOLUME 82 fL (80-100); MONOCYTES # (AUTO) 0.9 K/uL (0.1-1.0); MONOCYTES % (AUTO) 9.6 % (2.0-9.0); NEUTROPHILS # (AUTO) 6.5 K/uL (1.8-7.7); NEUTROPHILS % (AUTO) 70.1 % (40.0-70.0); PLATELET COUNT (AUTO) 273 K/uL (150-450); RED BLOOD CELL COUNT(AUTO) 5.14 MIL/uL (4.50-5.90); RED CELL DISTRIBUTION WIDTH 15.6 % (11.5-14.5)
[2018-01-28] MEDS ORDERED: MIDAZOLAM HCL 2 MG/2 ML VIAL IVP ONE (05:52)
[2018-01-28] MEDS ORDERED: FentaNYL CITRATE-PF 100 MCG/2 ML VIAL IVP ONE (05:52)
[2018-01-28] MEDS ORDERED: PROPOFOL 1% 20 ML VIAL IVP ONE (05:52)
[2018-01-28 06:00] LABS: ANION GAP 6 mmol/L (8-16); CALCIUM, TOTAL 8.2 mg/dL (8.8-10.5); CARBON DIOXIDE 29 mmol/L (22-29); CHLORIDE 99 mmol/L (98-107); CREATININE 0.84 mg/dL (0.60-1.30); GLOMERULAR FILTR. RATE CALC > 60 mL/min (>60); GLUCOSE,RANDOM 162 mg/dL (70-110); POTASSIUM 3.9 mmol/L (3.5-5.1); SODIUM SERUM 134 mmol/L (136-145); UREA NITROGEN, BLOOD 15 mg/dL (7-18)
[2018-01-28 06:24] LABS: GLUCOMETER DEV NAME(LOC) 6N 1E; GLUCOSE,POINT OF CARE 188 MG/DL (70-110)
[2018-01-28] MEDS: CeFAZolin 2 GM/DEXTROSE 50 ML IV SCH ×3 (06:32→23:53)
[2018-01-28] MEDS: INSULIN LISPRO 100 UNITS/ML SQ PRN ×3 (06:37→16:32)
[2018-01-28 07:55] LABS: GLUCOMETER DEV NAME(LOC) 6N 1E; GLUCOSE,POINT OF CARE 158 MG/DL (70-110)
[2018-01-28] MEDS: PANTOPRAZOLE SODIUM 40 MG DR TABLET PO SCH (08:04)
[2018-01-28] MEDS: ENALAPRIL MALEATE 20 MG TABLET PO SCH (08:04)
[2018-01-28] MEDS: HYDROCHLOROTHIAZIDE 25 MG TABLET PO SCH (08:04)
[2018-01-28] MEDS: DOCUSATE SODIUM 100 MG CAPSULE PO SCH ×2 (08:04→20:44)
[2018-01-28] MEDS: CARVEDILOL 6.25 MG TABLET PO SCH ×2 (08:04→21:00)
[2018-01-28] MEDS: MORPHINE SULFATE 4 MG/ML SYRINGE IVP PRN ×2 (08:04→20:43)
[2018-01-28] MEDS: ASPIRIN 81 MG CHEWABLE TABLET PO SCH (08:05)
[2018-01-28] MEDS: HEPARIN SODIUM,PORCINE 5,000 UNITS/ML VIAL SQ SCH ×3 (08:05→23:53)
[2018-01-28 12:44] LABS: GLUCOMETER DEV NAME(LOC) 6N 2D; GLUCOSE,POINT OF CARE 180 MG/DL (70-110)
[2018-01-28] MEDS ORDERED: HEPARIN SODIUM 1000 UNITS/NS 500 ML ONE (13:03)
[2018-01-28] MEDS ORDERED: SODIUM CHLORIDE 0.9% 250 ML IV ONE (16:27)
[2018-01-28 17:44] LABS: GLUCOMETER DEV NAME(LOC) 6N 1E; GLUCOSE,POINT OF CARE 237 MG/DL (70-110)
[2018-01-28] MEDS: ATORVASTATIN CALCIUM 40 MG TABLET PO SCH (20:44)
[2018-01-28 21:03] LABS: GLUCOMETER DEV NAME(LOC) 6N 2D; GLUCOSE,POINT OF CARE 254 MG/DL (70-110)
[2018-01-29 04:45] VITALS: BP 110/63
[2018-01-29] MEDS: INSULIN LISPRO 100 UNITS/ML SQ PRN ×2 (06:04→11:57)
[2018-01-29 06:19] LABS: GLUCOMETER DEV NAME(LOC) 6N 2D; GLUCOSE,POINT OF CARE 256 MG/DL (70-110)
[2018-01-29] MEDS: CeFAZolin 2 GM/DEXTROSE 50 ML IV SCH ×2 (06:59→16:36)
[2018-01-29 07:23] LABS: BASOPHILS % (AUTO) 0.7 % (0.0-2.0); EOSINOPHILS % (AUTO) 3.8 % (1.0-6.0); HEMATOCRIT 44.4 % (41-53); HEMOGLOBIN 14.7 g/dL (13.5-17.5); LYMPHOCYTES # (AUTO) 1.4 K/uL (1.0-4.8); LYMPHOCYTES % (AUTO) 13.8 % (22.0-44.0); MEAN CORPUSCULAR HEMOGLOBIN 27.4 pg (26.0-34.0); MEAN CORPUSCULAR HGB CONC 33.1 G/dL (31.0-37.0); MEAN CORPUSCULAR VOLUME 83 fL (80-100); MONOCYTES # (AUTO) 1.1 K/uL (0.1-1.0); MONOCYTES % (AUTO) 10.4 % (2.0-9.0); NEUTROPHILS # (AUTO) 7.3 K/uL (1.8-7.7); NEUTROPHILS % (AUTO) 71.3 % (40.0-70.0); PLATELET COUNT (AUTO) 315 K/uL (150-450); RED BLOOD CELL COUNT(AUTO) 5.37 MIL/uL (4.50-5.90); RED CELL DISTRIBUTION WIDTH 15.7 % (11.5-14.5)
[2018-01-29 07:30] LABS: ANION GAP 8 mmol/L (8-16); CALCIUM, TOTAL 8.7 mg/dL (8.8-10.5); CARBON DIOXIDE 28 mmol/L (22-29); CHLORIDE 96 mmol/L (98-107); CREATININE 1.07 mg/dL (0.60-1.30); GLOMERULAR FILTR. RATE CALC > 60 mL/min (>60); GLUCOSE,RANDOM 242 mg/dL (70-110); POTASSIUM 4.2 mmol/L (3.5-5.1); SODIUM SERUM 132 mmol/L (136-145); UREA NITROGEN, BLOOD 22 mg/dL (7-18)
[2018-01-29 08:00] VITALS: BP 99/63
[2018-01-29] MEDS: DOCUSATE SODIUM 100 MG CAPSULE PO SCH (09:00)
[2018-01-29] MEDS: CARVEDILOL 6.25 MG TABLET PO SCH (09:00)
[2018-01-29] MEDS: HYDROCHLOROTHIAZIDE 25 MG TABLET PO SCH (09:00)
[2018-01-29] MEDS: ENALAPRIL MALEATE 20 MG TABLET PO SCH (09:00)
[2018-01-29] MEDS ORDERED: MULTIVITAMINS WITH MINERALS, THERAPEUTIC TABLET PO SCH (09:00)
[2018-01-29] MEDS: ASPIRIN 81 MG CHEWABLE TABLET PO SCH (09:03)
[2018-01-29] MEDS: PANTOPRAZOLE SODIUM 40 MG DR TABLET PO SCH (09:03)
[2018-01-29] MEDS: HEPARIN SODIUM,PORCINE 5,000 UNITS/ML VIAL SQ SCH ×2 (09:06→16:36)
[2018-01-29 12:00] VITALS: BP 133/73
[2018-01-29 14:24] LABS: GLUCOMETER DEV NAME(LOC) 6N 1E; GLUCOSE,POINT OF CARE 230 MG/DL (70-110)
== END 2018-01-29 19:30 | disposition home or self-care (01) | DRG 314 ==
LOC: EMS 12:17 → 6N 16:41
PROVIDERS: ADMIT Internal Medicine; ATTEND Internal Medicine
PROC: 0QBN0ZZ Excision of Right Metatarsal, Open Approach (ICD-10-PCS; 2018-01-27)
PROC: 0QBQ0ZZ Excision of Right Toe Phalanx, Open Approach (ICD-10-PCS; 2018-01-27)
PROC: 0JBQ0ZZ Excision of Right Foot Subcutaneous Tissue and Fascia, Open Approach (ICD-10-PCS; principal; 2018-01-27 12:30)
DX: E11.69 Type 2 diabetes mellitus with other specified complication (principal); M86.171 Other acute osteomyelitis, right ankle and foot; E11.621 Type 2 diabetes mellitus with foot ulcer; E11.51 Type 2 diabetes mellitus with diabetic peripheral angiopathy without gangrene; L97.519 Non-pressure chronic ulcer of other part of right foot with unspecified severity; I10 Essential (primary) hypertension; L02.611 Cutaneous abscess of right foot; E78.00 Pure hypercholesterolemia, unspecified; F17.210 Nicotine dependence, cigarettes, uncomplicated; Z89.422 Acquired absence of other left toe(s); Z89.421 Acquired absence of other right toe(s); Z86.14 Personal history of Methicillin resistant Staphylococcus aureus infection; Z79.82 Long term (current) use of aspirin; Z79.02 Long term (current) use of antithrombotics/antiplatelets; Z71.6 Tobacco abuse counseling; Z79.899 Other long term (current) drug therapy
CPT/HCPCS: 36245; 36569; 73718; 76000; 76937; 85651; 86140; 87015; 87040; 87070; 87081; 87205; 87206; 88304; 88305; 88307; 88311; 96374; 97162; 97530; G0378; J0690; J1644; J2250; J2270; J2704; J3010; J3370; J3490; J7050; J7120

== ENCOUNTER 2018-07-25 10:08 | Inpatient (IN) | payer OTHER ==
[~2018-07-25] VITALS: Ht 165.1 cm; Wt 91.1 kg
[~2018-07-25 10:08] MED LIST changes: +ATOR40TA28 PO; -CLOP75 PO; +CLOP75TA3 PO; +HYDR25TA PO; -INSLAN SQ; -INSU100C3 SQ; +LINA5TAB PO; -OMEG-135 PO; -PRAV40TA4 PO; -SULF1TAB42 PO
[2018-07-25] MEDS ORDERED: INSU100V SQ (10:16)
[2018-07-25] MEDS ORDERED: INSLAN SQ (10:16)
[2018-07-25 10:24] LABS: GLUCOSE,POINT OF CARE 268 MG/DL (70-110)
[2018-07-25] MEDS ORDERED: 0.9% SODIUM CHLORIDE 10 ML SYRINGE IVP PRN ×3 (11:45→21:15)
[2018-07-25 12:38] LABS: ALANINE AMINOTRANSFERASE 17 U/L (12-78); ALBUMIN 2.9 g/dL (3.4-5.0); ALKALINE PHOSPHATASE 105 U/L (46-116); ANION GAP 7 mmol/L (8-16); ASPARTATE AMINOTRANSFERASE 11 U/L (15-37); BILIRUBIN,TOTAL 0.3 mg/dL (0.1-1.0); CARBON DIOXIDE 28 mmol/L (22-29); CHLORIDE 102 mmol/L (98-107); CREATININE 0.86 mg/dL (0.60-1.30); EOSINOPHILS % (AUTO) 2.9 % (1.0-6.0); GLOMERULAR FILTR. RATE CALC > 60 mL/min (>60); GLUCOSE,RANDOM 175 mg/dL (70-110); HEMATOCRIT 42.1 % (41-53); HEMOGLOBIN 13.7 g/dL (13.5-17.5); INR 0.9 (0.9-1.1); LACTIC ACID 1.5 mmol/L (0.4-2.0); LYMPHOCYTES # (AUTO) 1.4 K/uL (1.0-4.8); LYMPHOCYTES % (AUTO) 10.6 % (22.0-44.0); MEAN CORPUSCULAR HEMOGLOBIN 26.4 pg (26.0-34.0); MEAN CORPUSCULAR HGB CONC 32.6 G/dL (31.0-37.0); MEAN CORPUSCULAR VOLUME 81 fL (80-100); MONOCYTES # (AUTO) 1.1 K/uL (0.1-1.0); MONOCYTES % (AUTO) 8.1 % (2.0-9.0); NEUTROPHILS # (AUTO) 10.2 K/uL (1.8-7.7); NEUTROPHILS % (AUTO) 77.4 % (40.0-70.0); PLATELET COUNT (AUTO) 320 K/uL (150-450); POTASSIUM 4.2 mmol/L (3.5-5.1); PROTHROMBIN TIME 9.9 SEC (9.4-11.6); RED CELL DISTRIBUTION WIDTH 15.3 % (11.5-14.5); SODIUM SERUM 137 mmol/L (136-145); TOTAL PROTEIN, SERUM 7.4 g/dL (6.4-8.2); UREA NITROGEN, BLOOD 11 mg/dL (7-18)
[2018-07-25] MEDS ORDERED: VANCOMYCIN HCL 1 GM/D5% WATER 200 ML IV ONE (13:30)
[2018-07-25] MEDS ORDERED: PIPERACILLIN/TAZO 3.375 GM/D5W 50 ML IV ONE (13:30)
[2018-07-25] MEDS ORDERED: OxyCODONE HCL/ACETAMINOPHEN 5-325 MG TABLET PO PRN ×2 (14:00→21:15)
[2018-07-25] MEDS ORDERED: ACETAMINOPHEN 325 MG TABLET PO PRN ×2 (14:00→21:15)
[2018-07-25] MEDS ORDERED: ONDANSETRON HCL 4 MG/2 ML VIAL IVP PRN ×2 (14:00→21:15)
[2018-07-25] MEDS ORDERED: OxyCODONE HCL 20 MG ER TABLET PO ONE (14:00)
[2018-07-25 14:22] LABS: APPEARANCE,URINE CLEAR (CLEAR); BILIRUBIN,URINE NEGATIVE (NEGATIVE); GLUCOSE, URINE (UA) >=1000 mg/dL (NEGATIVE); KETONES,URINE NEGATIVE (NEGATIVE); LEUKOCYTE ESTERASE ,URINE NEGATIVE (NEGATIVE); NITRATE,URINE NEGATIVE (NEGATIVE); OCCULT BLOOD,URINE TRACE (NEGATIVE); PH,URINE 5.5 (5.0-8.0); PROTEIN,URINE NEGATIVE (NEGATIVE); UROBILINOGEN,URINE 0.2 mg/dL (<=1.0)
[2018-07-25 14:35] LABS: BACTERIA,URINE None Seen /HPF (None Seen); RBC,URINE 0-2 /HPF (0-2); WBC,URINE None Seen /HPF (0-5)
[2018-07-25 14:36] LABS: SQUAMOUS EPITHELIAL CELL,UR Rare /LPF (None Seen)
[2018-07-25 16:30] VITALS: BP_SYST 128; BP_SYST 147; BP_DIAS 66; BP_DIAS 72
[2018-07-25 18:05] LABS: GLUCOMETER DEV NAME(LOC) 5S.1; GLUCOSE,POINT OF CARE 151 MG/DL (70-110)
[2018-07-25] MEDS ORDERED: SODIUM CHLORIDE 0.9% 500 ML IV ONE (18:06)
[2018-07-25] MEDS: CefTRIAXone 1 GM/DEXTROSE 50 ML IV SCH (18:23)
[2018-07-25 19:30] VITALS: BP 133/63
[2018-07-25 20:59] LABS: GLUCOMETER DEV NAME(LOC) 5N.2; GLUCOSE,POINT OF CARE 282 MG/DL (70-110)
[2018-07-25] MEDS: DOCUSATE SODIUM 100 MG CAPSULE PO SCH (21:15)
[2018-07-25] MEDS ORDERED: MAGNESIUM HYDROXIDE SUSPENSION 30 ML UDCUP PO PRN (21:15)
[2018-07-25] MEDS ORDERED: DEXTROSE 50%-WATER 25 GM/50 ML SYRINGE IVP PRN (21:15)
[2018-07-25] MEDS: CARVEDILOL 6.25 MG TABLET PO SCH (21:15)
[2018-07-25] MEDS: ATORVASTATIN CALCIUM 40 MG TABLET PO SCH (21:47)
[2018-07-25] MEDS: INSULIN LISPRO 100 UNITS/ML SQ PRN (21:48)
[2018-07-25] MEDS: INSULIN GLARGINE,HUM.REC.ANLOG 100 UNITS/ML SQ SCH (21:48)
[2018-07-25] MEDS ORDERED: VANCOMYCIN HCL 1.5 GM in DEXTROSE 5%-WATER 250 ML IV ONE (22:00)
[2018-07-25 23:41] VITALS: BP 126/64
[2018-07-26 04:31] VITALS: BP 119/62
[2018-07-26 06:00] LABS: GLUCOMETER DEV NAME(LOC) 5S.1; GLUCOSE,POINT OF CARE 148 MG/DL (70-110)
[2018-07-26 06:08] LABS: BASOPHILS % (AUTO) 0.7 % (0.0-2.0); EOSINOPHILS % (AUTO) 2.9 % (1.0-6.0); HEMATOCRIT 38.8 % (41-53); HEMOGLOBIN 12.6 g/dL (13.5-17.5); LYMPHOCYTES # (AUTO) 1.1 K/uL (1.0-4.8); LYMPHOCYTES % (AUTO) 10.8 % (22.0-44.0); MEAN CORPUSCULAR HGB CONC 32.5 G/dL (31.0-37.0); MEAN CORPUSCULAR VOLUME 80 fL (80-100); MONOCYTES # (AUTO) 1.1 K/uL (0.1-1.0); MONOCYTES % (AUTO) 10.2 % (2.0-9.0); NEUTROPHILS # (AUTO) 7.8 K/uL (1.8-7.7); NEUTROPHILS % (AUTO) 75.4 % (40.0-70.0); PLATELET COUNT (AUTO) 320 K/uL (150-450); RED BLOOD CELL COUNT(AUTO) 4.85 MIL/uL (4.50-5.90); RED CELL DISTRIBUTION WIDTH 15.3 % (11.5-14.5)
[2018-07-26 07:19] LABS: ALANINE AMINOTRANSFERASE 14 U/L (12-78); ALBUMIN 2.3 g/dL (3.4-5.0); ALKALINE PHOSPHATASE 82 U/L (46-116); ANION GAP 9 mmol/L (8-16); ASPARTATE AMINOTRANSFERASE 12 U/L (15-37); BILIRUBIN,TOTAL 0.3 mg/dL (0.1-1.0); CALCIUM, TOTAL 8.7 mg/dL (8.8-10.5); CARBON DIOXIDE 27 mmol/L (22-29); CHLORIDE 101 mmol/L (98-107); CREATININE 0.77 mg/dL (0.60-1.30); GLOMERULAR FILTR. RATE CALC > 60 mL/min (>60); GLUCOSE,RANDOM 144 mg/dL (70-110); POTASSIUM 4.2 mmol/L (3.5-5.1); SODIUM SERUM 137 mmol/L (136-145); TOTAL PROTEIN, SERUM 6.8 g/dL (6.4-8.2); UREA NITROGEN, BLOOD 12 mg/dL (7-18)
[2018-07-26 08:02] VITALS: BP 141/71
[2018-07-26] MEDS ORDERED: LIDOCAINE/PF 1% 30 ML VIAL ONE (08:27)
[2018-07-26] MEDS ORDERED: BUPIVACAINE HCL/PF 0.5% 30 ML VIAL ONE (08:27)
[2018-07-26] MEDS ORDERED: RINGERS SOLUTION,LACTATED 1,000 ML IV ONE (08:35)
[2018-07-26] MEDS: PANTOPRAZOLE SODIUM 40 MG DR TABLET PO SCH ×2 (09:00→10:55)
[2018-07-26] MEDS: DOCUSATE SODIUM 100 MG CAPSULE PO SCH ×2 (09:00→20:22)
[2018-07-26] MEDS ORDERED: POVIDONE-IODINE 30 GM OINTMENT TP ONE (09:48)
[2018-07-26] MEDS: ASPIRIN 81 MG EC TABLET PO SCH (10:55)
[2018-07-26] MEDS: CLOPIDOGREL BISULFATE 75 MG TABLET PO SCH (10:55)
[2018-07-26] MEDS: CARVEDILOL 6.25 MG TABLET PO SCH ×2 (10:55→20:22)
[2018-07-26] MEDS: ENALAPRIL MALEATE 20 MG TABLET PO SCH (10:55)
[2018-07-26] MEDS: VANCOMYCIN HCL 1.5 GM in DEXTROSE 5%-WATER 250 ML IV SCH ×2 (10:56→20:22)
[2018-07-26 11:44] VITALS: BP 125/63
[2018-07-26 14:09] LABS: GLUCOMETER DEV NAME(LOC) 5S.1; GLUCOSE,POINT OF CARE 129 MG/DL (70-110)
[2018-07-26 16:50] VITALS: BP 134/61
[2018-07-26] MEDS: CefTRIAXone 1 GM/DEXTROSE 50 ML IV SCH (16:56)
[2018-07-26] MEDS: OxyCODONE HCL/ACETAMINOPHEN 5-325 MG TABLET PO PRN (17:00)
[2018-07-26] MEDS: INSULIN LISPRO 100 UNITS/ML SQ PRN ×2 (17:29→20:32)
[2018-07-26 17:44] LABS: GLUCOMETER DEV NAME(LOC) 5S.1; GLUCOSE,POINT OF CARE 159 MG/DL (70-110)
[2018-07-26 19:47] VITALS: BP 113/65
[2018-07-26] MEDS: ATORVASTATIN CALCIUM 40 MG TABLET PO SCH (20:22)
[2018-07-26] MEDS: INSULIN GLARGINE,HUM.REC.ANLOG 100 UNITS/ML SQ SCH (20:36)
[2018-07-26 23:53] VITALS: BP 121/68
[2018-07-27 00:49] LABS: GLUCOMETER DEV NAME(LOC) 5S.1; GLUCOSE,POINT OF CARE 200 MG/DL (70-110)
[2018-07-27 05:19] VITALS: BP 119/66
[2018-07-27] MEDS ORDERED: METOCLOPRAMIDE HCL 5 MG/ML 2 ML VIAL IVP ONE (05:40)
[2018-07-27] MEDS ORDERED: PROPOFOL 1% 20 ML VIAL IVP ONE (05:40)
[2018-07-27] MEDS ORDERED: MIDAZOLAM HCL 2 MG/2 ML VIAL IVP ONE (05:40)
[2018-07-27] MEDS ORDERED: ONDANSETRON HCL 4 MG/2 ML VIAL IVP ONE (05:40)
[2018-07-27] MEDS ORDERED: LIDOCAINE/PF 2% 5 ML VIAL IM ONE (05:40)
[2018-07-27] MEDS ORDERED: FentaNYL CITRATE-PF 100 MCG/2 ML VIAL IVP ONE (05:40)
[2018-07-27] MEDS: INSULIN LISPRO 100 UNITS/ML SQ PRN ×4 (05:44→20:37)
[2018-07-27 06:49] LABS: GLUCOMETER DEV NAME(LOC) 5N.2; GLUCOSE,POINT OF CARE 204 MG/DL (70-110)
[2018-07-27 07:58] VITALS: BP 133/73
[2018-07-27] MEDS: VANCOMYCIN HCL 1.5 GM in DEXTROSE 5%-WATER 250 ML IV SCH ×2 (08:02→20:04)
[2018-07-27] MEDS: PANTOPRAZOLE SODIUM 40 MG DR TABLET PO SCH (08:03)
[2018-07-27] MEDS: DOCUSATE SODIUM 100 MG CAPSULE PO SCH ×2 (08:03→20:04)
[2018-07-27] MEDS: ASPIRIN 81 MG EC TABLET PO SCH (08:03)
[2018-07-27] MEDS: ENALAPRIL MALEATE 20 MG TABLET PO SCH (08:03)
[2018-07-27] MEDS: CLOPIDOGREL BISULFATE 75 MG TABLET PO SCH (08:03)
[2018-07-27] MEDS: MULTIVITAMINS, THERAPEUTIC TABLET PO SCH (08:03)
[2018-07-27] MEDS: CARVEDILOL 6.25 MG TABLET PO SCH ×2 (08:03→20:04)
[2018-07-27 10:38] LABS: ANION GAP 5 mmol/L (8-16); CALCIUM, TOTAL 8.7 mg/dL (8.8-10.5); CARBON DIOXIDE 31 mmol/L (22-29); CHLORIDE 100 mmol/L (98-107); CREATININE 0.87 mg/dL (0.60-1.30); GLOMERULAR FILTR. RATE CALC > 60 mL/min (>60); GLUCOSE,RANDOM 195 mg/dL (70-110); POTASSIUM 4.4 mmol/L (3.5-5.1); SODIUM SERUM 136 mmol/L (136-145); UREA NITROGEN, BLOOD 14 mg/dL (7-18)
[2018-07-27 11:44] VITALS: BP 125/57
[2018-07-27 15:09] LABS: GLUCOMETER DEV NAME(LOC) 5N.2; GLUCOSE,POINT OF CARE 173 MG/DL (70-110)
[2018-07-27 15:53] VITALS: BP 119/57
[2018-07-27] MEDS: CefTRIAXone 1 GM/DEXTROSE 50 ML IV SCH (17:22)
[2018-07-27 19:04] LABS: GLUCOMETER DEV NAME(LOC) 5N.2; GLUCOSE,POINT OF CARE 195 MG/DL (70-110)
[2018-07-27 19:34] VITALS: BP 118/68
[2018-07-27] MEDS: ATORVASTATIN CALCIUM 40 MG TABLET PO SCH (20:04)
[2018-07-27] MEDS: OxyCODONE HCL/ACETAMINOPHEN 5-325 MG TABLET PO PRN (20:09)
[2018-07-27] MEDS: INSULIN GLARGINE,HUM.REC.ANLOG 100 UNITS/ML SQ SCH (20:38)
[2018-07-27 21:44] LABS: GLUCOMETER DEV NAME(LOC) 5N.2; GLUCOSE,POINT OF CARE 248 MG/DL (70-110)
[2018-07-27 23:29] VITALS: BP 104/59
[2018-07-28 05:17] VITALS: BP 136/69
[2018-07-28 05:30] LABS: GLUCOMETER DEV NAME(LOC) 5N.2; GLUCOSE,POINT OF CARE 136 MG/DL (70-110)
[2018-07-28] MEDS: INSULIN LISPRO 100 UNITS/ML SQ PRN ×2 (06:00→11:21)
[2018-07-28 06:31] LABS: ANION GAP 4 mmol/L (8-16); CALCIUM, TOTAL 8.7 mg/dL (8.8-10.5); CARBON DIOXIDE 30 mmol/L (22-29); CHLORIDE 102 mmol/L (98-107); CREATININE 0.94 mg/dL (0.60-1.30); GLOMERULAR FILTR. RATE CALC > 60 mL/min (>60); GLUCOSE,RANDOM 131 mg/dL (70-110); POTASSIUM 4.4 mmol/L (3.5-5.1); SODIUM SERUM 136 mmol/L (136-145); UREA NITROGEN, BLOOD 18 mg/dL (7-18); VANCOMYCIN,RANDOM 21.7 mcg/mL (25.0-50.0)
[2018-07-28 07:55] VITALS: BP 139/78
[2018-07-28] MEDS: VANCOMYCIN HCL 1.5 GM in DEXTROSE 5%-WATER 250 ML IV SCH (07:58)
[2018-07-28] MEDS: ENALAPRIL MALEATE 20 MG TABLET PO SCH (07:59)
[2018-07-28] MEDS: MULTIVITAMINS, THERAPEUTIC TABLET PO SCH (07:59)
[2018-07-28] MEDS: PANTOPRAZOLE SODIUM 40 MG DR TABLET PO SCH (07:59)
[2018-07-28] MEDS: CARVEDILOL 6.25 MG TABLET PO SCH (07:59)
[2018-07-28] MEDS: DOCUSATE SODIUM 100 MG CAPSULE PO SCH (07:59)
[2018-07-28] MEDS: CLOPIDOGREL BISULFATE 75 MG TABLET PO SCH (07:59)
[2018-07-28] MEDS: ASPIRIN 81 MG EC TABLET PO SCH (07:59)
[2018-07-28 11:30] VITALS: BP 138/78
[2018-07-28] MEDS ORDERED: CLOP75TA3 PO (13:12)
[2018-07-28] MEDS ORDERED: CEPH500 PO (13:14)
[2018-07-28 14:59] LABS: GLUCOMETER DEV NAME(LOC) 4E.; GLUCOSE,POINT OF CARE 258 MG/DL (70-110)
== END 2018-07-28 13:20 | disposition home or self-care (01) | DRG 710 ==
LOC: EMS 10:09 → 5N 14:56 → 4E 07-28 10:30
PROVIDERS: ADMIT Internal Medicine; ATTEND Internal Medicine
PROC: 0JBQ0ZZ Excision of Right Foot Subcutaneous Tissue and Fascia, Open Approach (ICD-10-PCS; 2018-07-26)
PROC: 0Y6U0Z1 Detachment at Left 3rd Toe, High, Open Approach (ICD-10-PCS; principal; 2018-07-26 09:00)
DX: A41.9 Sepsis, unspecified organism (principal); E43 Unspecified severe protein-calorie malnutrition; E11.42 Type 2 diabetes mellitus with diabetic polyneuropathy; E11.51 Type 2 diabetes mellitus with diabetic peripheral angiopathy without gangrene; L03.119 Cellulitis of unspecified part of limb; E11.65 Type 2 diabetes mellitus with hyperglycemia; E78.00 Pure hypercholesterolemia, unspecified; M86.8X7 Other osteomyelitis, ankle and foot; L98.499 Non-pressure chronic ulcer of skin of other sites with unspecified severity; E11.621 Type 2 diabetes mellitus with foot ulcer; E11.69 Type 2 diabetes mellitus with other specified complication; E78.5 Hyperlipidemia, unspecified; F17.210 Nicotine dependence, cigarettes, uncomplicated; I10 Essential (primary) hypertension; L03.116 Cellulitis of left lower limb; L97.519 Non-pressure chronic ulcer of other part of right foot with unspecified severity; L97.529 Non-pressure chronic ulcer of other part of left foot with unspecified severity; Z89.422 Acquired absence of other left toe(s); Z89.431 Acquired absence of right foot
CPT/HCPCS: 83605; 87040; 87070; 87081; 88307; 88311; 97116; 97161; G0378; J0696; J1815; J2250; J2405; J2543; J2704; J2765; J3010; J3370; J3490; J7040; J7060; J7120